=== PATIENT | female | born 1990 | race Caucasian/White ===

== ENCOUNTER 2024-12-04 16:19 | Inpatient (IN) | payer SELFPAY ==
--- OUTSIDE RECORDS SUMMARY | 2024-03-19 08:00 | XMS_ITS ---
Author Organization [facility] Address [address] [place] [address] Care Team Providers Care Finishing Wire Sawyer Name Role Phone Umm Boogie Primary Care Provider REASON FOR VISIT [place] Social History Sex Assigned At : Social History Observation Description Sex Assigned At Female Encounters Encounter Location Date Provider Diagnosis 18[facility] [address] [place] [address] 03/19/2024 Umm Boogie Plan Of Treatment No Information Progress Notes * Lorri REYNOSO MDOB:[birth year] (34 yo F)Acc No.[id number]:03/19/2024 Population Health Nurse Visi t Patient: Aleida Lorri baez Provider: Kirk Boogie MD :1990 A ge:33 Y S ex:Female Date:03/19/2024 Address:[address] [place] [address] [place], [place] [id number] Subjective: * Chief Complaints: * M edicaid [place] Billing Information: * Procedure Codes: Care Plan Details* * Electronic signature of Daisy Boogie MD on 12/04/2024 at 04:29 PM CDT Sign off status: Pending * Provider: Kirk Boogie MD Date: 1 Generated for Printi ng/Faxing/eTransmitting on: 0 12/04/2024 04:29 PM CDT
--- OUTSIDE RECORDS SUMMARY | 2024-03-19 08:00 | XMS_ITS ---
Author Organization [facility] Address [address] [place] [address] Care Team Providers Care Records Management Engineer Name Role Phone Umm Boogie Primary Care Provider REASON FOR VISIT DM f/uSEE NAVIGATORS Social History Sex Assigned At : Social History Observation Description Sex Assigned At Female Encounters Encounter Location Date Provider Diagnosis 18 [facility] [address] [place] [address] 03/19/2024 Umm Boogie Plan Of Treatment No Information Progress Notes * Lorri REYNOSO MDOB:[birth year] (34 yo F)Acc No.[id number]:03/19/2024 Progress Notes Patient: Aleida Lorri baez Provider: Kirk Boogie MD :1990 A ge:33 Y S ex:Female Date:03/19/2024 Address:[address] [place] [address] [place], [place] [id number] Subjective: * Chief Complaints: * D M f/uSEE NAVIGATORS Billing Information: * Procedure Codes: Care Plan Details* * Electronic signature of Daisy Boogie MD on 12/04/2024 at 04:29 PM CDT Sign off status: Pending * Provider: Kirk Boogie MD Date: 1 Generated for Printi ng/Faxing/eTransmitting on: 0 12/04/2024 04:29 PM CDT
--- OUTSIDE RECORDS SUMMARY | 2024-03-19 08:00 | XMS_ITS ---
Author Organization [facility] Address [address] [place] [address] Care Team Providers Care Bliss Press Operator Name Role Phone Umm Boogie Primary Care Provider REASON FOR VISIT DM check in- pt with PCP Social History Sex Assigned At : Social History Observation Description Sex Assigned At Female Encounters Encounter Location Date Provider Diagnosis 18 [facility] [address] [place] [address] 03/19/2024 Umm Boogie Plan Of Treatment No Information Progress Notes * Lorri REYNOSO MDOB:[birth year] (34 yo F)Acc No.[id number]:03/19/2024 [facility] Patient: Lorri Lezama Provider: Kirk Boogie MD :1990 A ge:33 Y S ex:Female Date:03/19/2024 Address:[address] [place] [address] [place], [place] [phone] Subjective: * Chief Complaints: * D M check in- pt with PCP Billing Information: * Procedure Codes: Care Plan Details* * Electronic signature of Daisy Boogie MD on 12/04/2024 at 04:29 PM CDT Sign off status: Pending * Provider: Kirk Boogie MD Date: 1 Generated for Printi ng/Faxing/eTransmitting on: 0 12/04/2024 04:29 PM CDT
[2024-12-04 16:20] VITALS: BP 150/100; PULSE 106; RESP 19; TEMP 36.7; O2SAT 98; BMI 37.5
--- OUTSIDE RECORDS SUMMARY | 2024-12-04 16:29 | XMS_ITS | Patient Health Record ---
Author Organization [facility] Address [address] [place] [address] Care Team Providers Care Galvanizer Zinc Name Role Phone Umm Boogie Primary Care Provider Allergies Allergen (clinical drug ingredient) Drug/Non Drug Allergy documented on EMR Reaction Allergy Type Onset Date Status aspirin / citric acid / sodium bicarbonate Juan Carlos Unknown Drug Allergy Active Reason For Referral No Information Medications Medication SIG (Take, Route, Frequency, Duration) Notes Start Date End Date Status Wellbutrin XL 150 MG Tablet Extended Release 24 Hour 1 tablet daily for 1 week then 2 tabs daily Orally in the morning; Duration: 30 days 11/25/2023 Active Social History Tobacco Use: Social History Observation Description Date Details (start date - stop date) Unknown Sex Assigned At : Social History Observation Description Sex Assigned At Female Social History Drugs/Alcohol: Social Info Question Answer Notes Drugs Have you used drugs other than those for medical reasons in the past 12 months? Yes Marijuana? Yes Methamphetamine? Yes Drug/Alcohol: Social Info Question Answer Notes AUDIT-C (Standard) Did you have a drink containing alcohol in the past year? No Points 0 Interpretation Negative Tobacco Use: Social Info Question Answer Notes Tobacco Control (Standard) Tobacco use: Uses tobacco in other forms Are you an ENDS user: Are you an other t obacco user? Yes Electronic Nicotine Delivery System Yes Problems Problem Type SNOMED Code ICD Code Onset Dates Problem Status W/U Status Risk Notes Problem Diabetes (E11.9) Active confirmed Problem Methamphetamine abuse (062764156) Methamphetamine abuse (F15.10) Active confirmed Problem Substance abuse (4995113231) Substance abuse (F19.10) Active confirmed Plan Of Treatment No Information Insurance Providers Payer Name Payer Address Payer Phone Subscriber Number Group Number Insured Name Patient Relationship to Insured Coverage Start Date Coverage End Date Ambetter [address] [place] [address] [phone] [id number] Lorri Holliday Self - patient is the insured [facility] [address] [place] [address] [phone] [id number] Lorri Holliday Self - patient is the insured Medical (General) History Medical History History ICD Code type II diabetes Methamphetamine abuse F15.10
--- NOTE | 2024-12-04 16:53 | W.ED.PSYCHS ---
Documented by User: Jessica Coffey NP 12/04/24 17:59 HPI - Psych General: Chief Complaint: Psychiatric Symptoms Stated Complaint: SI Time Seen by Provider: 12/04/24 16:22 History of Present Illness: 34-year-old female patient presents to the emergency department with complaints of suicidal ideation. Patient admits to doing meth about 25 minutes prior to arrival. Patient states she does have a plan I would like to lay across train tracks. Patient states she is just tired of living. Patient states she has tried to stop meth and is recently cut back used to do meth daily and now it is a few times a week. Patient denies any other complaints at this time. Related Data Previous Rx's ?Medication ?Instructions ?Recorded furosemide 20 mg tablet (Lasix) 20 mg PO .COMPLEX #9 tabs 11/23/24 potassium chloride 10 mEq 10 meq PO DAILY 6 days #6 caps 11/23/24 capsule,extended release Allergies Allergy/AdvReac Type Severity Reaction Status Date / Time No Known Allergies Allergy Verified 12/04/24 16:24 Review of Systems General: Reports: 10 or more systems reviewed and unremarkable except in HPI and below PFSH ED PFSH: Social History Smoking and tobacco/nicotine status: current every day tobacco/nicotine user Physical Exam Narrative: EXAM NARRATIVE: 34-year-old female patient presents to the emergency department with complaints of suicidal ideation. Patient admits to doing meth about 25 minutes prior to arrival. Patient states she does have a plan I would like to lay across train tracks. Patient states she is just tired of living. Patient states she has tried to stop meth and is recently cut back used to do meth daily and now it is a few times a week. Patient denies any other complaints at this time. Given patients SI she is deemed a threat to herself and will require psychiatric admission for evaluation and stabilization. Const: COMMON NORMALS: patient oriented x3 HENMT: COMMON NORMALS: normocephalic and atraumatic HEAD & SCALP: normocephalic and atraumatic Resp: COMMON NORMALS: normal respiratory effort, No retractions, No use of accessory muscles and clear to auscultation bilaterally AUSCULTATION: clear to auscultation bilaterally Cardio: COMMON NORMALS: regular rate and regular rhythm RATE: regular rate RHYTHM: regular rhythm Neuro: COMMON NORMALS: patient oriented x3, CN's II-XII intact bilaterally and moves all extremities Psych: COMMON NORMALS: cooperative; negative for normal affect, negative for denies homicidal ideation and negative for denies suicidal ideation Course Vital Signs: Vital signs: Vital Signs Temperature 97.8 F 12/05/24 06:00 Pulse Rate 99 12/05/24 06:00 Respiratory Rate 17 12/05/24 06:00 Blood Pressure 137/98 12/05/24 06:00 Pulse Oximetry 97 12/05/24 06:00 Oxygen Delivery Me thod Room Air 12/05/24 06:00 MDM - Psych Medical Decision Making 34-year-old female patient presents to the emergency department with complaints of suicidal ideation. Patient admits to doing meth about 25 minutes prior to arrival. Patient states she does have a plan I would like to lay across train tracks. Patient states she is just tired of living. Patient states she has tried to stop meth and is recently cut back used to do meth daily and now it is a few times a week. Patient denies any other complaints at this time. Lab Data 12/04/24 17:54 12/04/24 17:54 Laboratory Results WBC 8.45 10^3/uL (3.29-11.43) 12/04/24 17:54 RBC 5.55 10^6/uL (3.85-5.65) 12/04/24 17:54 Hgb 16.50 g/dL (11.27-16.99) 12/04/24 17:54 Hct 51.5 % (36-47) H 12/04/24 17:54 MCV 92.8 fl (85-98) 12/04/24 17:54 MCH 29.7 pg (27-33) 12/04/24 17:54 MCHC 32.0 g/dL (30-55) 12/04/24 17:54 RDW 15.9 % (12.1-15.1) H 12/04/24 17:54 Plt Count 264 10^3/cmm (157-399) 12/04/24 17:54 MPV 10.1 fL (7.4-10.4) 12/04/24 17:54 Neut % (Auto) 53.1 % 12/04/24 17:54 Lymph % (Auto) 33.6 % 12/04/24 17:54 [place] % (Auto) 11.0 % 12/04/24 17:54 Eos % (Auto) 1.2 % 12/04/24 17:54 Baso % (Auto) 0.9 % 12/04/24 17:54 Neut # (Auto) 4.48 10^3/uL (1.8-7.7) 12/04/24 17:54 Lymph # (Auto) 2.8 10^3/uL (0.8-4.8) 12/04/24 17:54 [place] # (Auto) 0.9 10^3/uL (0.2-0.9) 12/04/24 17:54 Eos # (Auto) 0.1 10^3/uL (0.0-0.8) 12/04/24 17:54 Baso # (Auto) 0.1 10^3/uL (0.0-0.1) 12/04/24 17:54 Nucleated RBC % (auto) 0 % 12/04/24 17:54 Nucleated RBCs # 0.0 /100WBC 12/04/24 17:54 Sodium 136 mmol/L (136-145) 12/04/24 17:54 Potassium 3.7 mmol/L (3.5-5.1) 12/04/24 17:54 Chloride 101 mmol/L (98-107) 12/04/24 17:54 Carbon Dioxide 22 mmol/L (22-29) 12/04/24 17:54 Anion Gap 16.7 (5-19) 12/04/24 17:54 BUN 13 mg/dL (6-20) 12/04/24 17:54 Creatinine 1.1 mg/dL (0.5-0.9) H 12/04/24 17:54 GFR Calculation 56.2 mL/min (90-130) L 12/04/24 17:54 Glucose 117 mg/dL (65-115) H 12/04/24 17:54 Calculated Osmolality 283 mOsm/kg (285-295) L 12/04/24 17:54 Calcium 8.9 mg/dL (8.5-10.5) 12/04/24 17:54 Total Bilirubin 1.4 mg/dL (0.15-1.2) H 12/04/24 17:54 AST 38 U/L (0-32) H 12/04/24 17:54 ALT 30 U/L (0-33) 12/04/24 17:54 Alkaline Phosphatase 128 U/L (35-105) H 12/04/24 17:54 Total Protein 6.6 g/dL (6.6-8.7) 12/04/24 17:54 Albumin 3.3 g/dL (3.5-5.2) L 12/04/24 17:54 Globulin 3.3 g/dL (1.3-4.6) 12/04/24 17:54 HCG, Qual Negative (Negative) 12/04/24 16:35 Urine Color Dark yellow (Yellow) A 12/04/24 16:35 Urine Appearance Cloudy (CLEAR) A 12/04/24 16:35 Urine pH 5.5 (5-7) 12/04/24 16:35 Ur Specific [place] 1.017 (1.005-1.030) 12/04/24 16:35 Urine Protein 3+ (Negative) A 12/04/24 16:35 Urine Glucose (UA) Negative (Normal) 12/04/24 16:35 Urine Ketones Negative (Negative) 12/04/24 16:35 Urine Blood 1+ (Negative) A 12/04/24 16:35 Urine Nitrate Negative (Negative) 12/04/24 16:35 Urine Bilirubin 1+ (Negative) H 12/04/24 16:35 Urine Urobilinogen 1.0 mg/dL (Negative) 12/04/24 16:35 Ur Leukocyte Esterase Negative (Negative) 12/04/24 16:35 Urine RBC 0-2 /hpf (0-2) 12/04/24 16:35 Urine WBC 0-5 /hpf (0-5) 12/04/24 16:35 Ur Squamous Epith Cells 11-20 /hpf (0-5) H 12/04/24 16:35 Amorphous Sediment Not Reportable 12/04/24 16:35 Urine Bacteria 1+ /hpf (NONE) H 12/04/24 16:35 Hyaline Casts 18.61 /lpf 12/04/24 16:35 Salicylates < 0.3 mg/dL (3-10) L 12/04/24 17:54 Urine Opiates Screen Negative ng/mL (Negative) 12/04/24 16:35 Acetaminophen < 5.0 ug/mL (10-30) L 12/04/24 17:54 Ur Barbiturates Screen Negative ng/mL (Negative) 12/04/24 16:35 Ur Phencyclidine Scrn Negative ng/mL (Negative) 12/04/24 16:35 Ur Amphetamines Screen Positive ng/mL (Negative) H 12/04/24 16:35 U Benzodiazepines Scrn Negative ng/mL (Negative) 12/04/24 16:35 Urine Cocaine Screen Negative ng/mL (Negative) 12/04/24 16:35 U Marijuana (THC) Screen Negative ng/mL (Negative) 12/04/24 16:35 Ethyl Alcohol < 10 mg/dL (0-10) 12/04/24 17:54 Influenza A (PCR) Negative (Negative) 12/04/24 17:15 Influenza Type B (PCR) Negative (Negative) 12/04/24 17:15 RSV (PCR) Negative (Negative) 12/04/24 17:15 SARS-CoV-2 (PCR) Negative (Negative) 12/04/24 17:15 No radiology studies performed this visit Discharge Plan Discharge Patient Disposition: Admitted As Inpatient Admit Provider: Nader Carbone Clinical Impression: Suicidal ideation, Methamphetamine abuse Condition: Stable Coding Level of Care Code ED Public Relations Supervisor for Chg Fwd Documented by User: Fred Rodriguez DO 12/05/24 09:10 HPI - Psych General: Chief Complaint: Psychiatric Symptoms Stated Complaint: SI Time Seen by Provider: 12/04/24 16:22 Related Data Previous Rx's ?Medication ?Instructions ?Recorded furosemide 20 mg tablet (Lasix) 20 mg PO .COMPLEX #9 tabs 11/23/24 potassium chloride 10 mEq 10 meq PO DAILY 6 days #6 caps 11/23/24 capsule,extended release Allergies Allergy/AdvReac Type Severity Reaction Status Date / Time No Known Allergies Allergy Verified 12/04/24 16:24 PFSH ED PFSH: Social History Smoking and tobacco/nicotine status: current every day tobacco/nicotine user Course Vital Signs: Vital signs: Vital Signs Temperature 97.8 F 12/05/24 06:00 Pulse Rate 99 12/05/24 06:00 Respiratory Rate 17 12/05/24 06:00 Blood Pressure 137/98 12/05/24 06:00 Pulse Oximetry 97 12/05/24 06:00 Oxygen Delivery Me thod Room Air 12/05/24 06:00 MDM - Psych Medical Decision Making 34-year-old female patient presents to the emergency department with complaints of suicidal ideation. Patient admits to doing meth about 25 minutes prior to arrival. Patient states she does have a plan I would like to lay across train tracks. Patient states she is just tired of living. Patient states she has tried to stop meth and is recently cut back used to do meth daily and now it is a few times a week. Patient denies any other complaints at this time. Chart reviewed and patient discussed with midlevel. Agree with assessment and plan. Lab Data 12/04/24 17:54 12/04/24 17:54 Laboratory Results WBC 8.45 10^3/uL (3.29-11.43) 12/04/24 17:54 RBC 5.55 10^6/uL (3.85-5.65) 12/04/24 17:54 Hgb 16.50 g/dL (11.27-16.99) 12/04/24 17:54 Hct 51.5 % (36-47) H 12/04/24 17:54 MCV 92.8 fl (85-98) 12/04/24 17:54 MCH 29.7 pg (27-33) 12/04/24 17:54 MCHC 32.0 g/dL (30-55) 12/04/24 17:54 RDW 15.9 % (12.1-15.1) H 12/04/24 17:54 Plt Count 264 10^3/cmm (157-399) 12/04/24 17:54 MPV 10.1 fL (7.4-10.4) 12/04/24 17:54 Neut % (Auto) 53.1 % 12/04/24 17:54 Lymph % (Auto) 33.6 % 12/04/24 17:54 [place] % (Auto) 11.0 % 12/04/24 17:54 Eos % (Auto) 1.2 % 12/04/24 17:54 Baso % (Auto) 0.9 % 12/04/24 17:54 Neut # (Auto) 4.48 10^3/uL (1.8-7.7) 12/04/24 17:54 Lymph # (Auto) 2.8 10^3/uL (0.8-4.8) 12/04/24 17:54 [place] # (Auto) 0.9 10^3/uL (0.2-0.9) 12/04/24 17:54 Eos # (Auto) 0.1 10^3/uL (0.0-0.8) 12/04/24 17:54 Baso # (Auto) 0.1 10^3/uL (0.0-0.1) 12/04/24 17:54 Nucleated RBC % (auto) 0 % 12/04/24 17:54 Nucleated RBCs # 0.0 /100WBC 12/04/24 17:54 Sodium 136 mmol/L (136-145) 12/04/24 17:54 Potassium 3.7 mmol/L (3.5-5.1) 12/04/24 17:54 Chloride 101 mmol/L (98-107) 12/04/24 17:54 Carbon Dioxide 22 mmol/L (22-29) 12/04/24 17:54 Anion Gap 16.7 (5-19) 12/04/24 17:54 BUN 13 mg/dL (6-20) 12/04/24 17:54 Creatinine 1.1 mg/dL (0.5-0.9) H 12/04/24 17:54 GFR Calculation 56.2 mL/min (90-130) L 12/04/24 17:54 Glucose 117 mg/dL (65-115) H 12/04/24 17:54 Calculated Osmolality 283 mOsm/kg (285-295) L 12/04/24 17:54 Calcium 8.9 mg/dL (8.5-10.5) 12/04/24 17:54 Total Bilirubin 1.4 mg/dL (0.15-1.2) H 12/04/24 17:54 AST 38 U/L (0-32) H 12/04/24 17:54 ALT 30 U/L (0-33) 12/04/24 17:54 Alkaline Phosphatase 128 U/L (35-105) H 12/04/24 17:54 Total Protein 6.6 g/dL (6.6-8.7) 12/04/24 17:54 Albumin 3.3 g/dL (3.5-5.2) L 12/04/24 17:54 Globulin 3.3 g/dL (1.3-4.6) 12/04/24 17:54 HCG, Qual Negative (Negative) 12/04/24 16:35 Urine Color Dark yellow (Yellow) A 12/04/24 16:35 Urine Appearance Cloudy (CLEAR) A 12/04/24 16:35 Urine pH 5.5 (5-7) 12/04/24 16:35 Ur Specific [place] 1.017 (1.005-1.030) 12/04/24 16:35 Urine Protein 3+ (Negative) A 12/04/24 16:35 Urine Glucose (UA) Negative (Normal) 12/04/24 16:35 Urine Ketones Negative (Negative) 12/04/24 16:35 Urine Blood 1+ (Negative) A 12/04/24 16:35 Urine Nitrate Negative (Negative) 12/04/24 16:35 Urine Bilirubin 1+ (Negative) H 12/04/24 16:35 Urine Urobilinogen 1.0 mg/dL (Negative) 12/04/24 16:35 Ur Leukocyte Esterase Negative (Negative) 12/04/24 16:35 Urine RBC 0-2 /hpf (0-2) 12/04/24 16:35 Urine WBC 0-5 /hpf (0-5) 12/04/24 16:35 Ur Squamous Epith Cells 11-20 /hpf (0-5) H 12/04/24 16:35 Amorphous Sediment Not Reportable 12/04/24 16:35 Urine Bacteria 1+ /hpf (NONE) H 12/04/24 16:35 Hyaline Casts 18.61 /lpf 12/04/24 16:35 Salicylates < 0.3 mg/dL (3-10) L 12/04/24 17:54 Urine Opiates Screen Negative ng/mL (Negative) 12/04/24 16:35 Acetaminophen < 5.0 ug/mL (10-30) L 12/04/24 17:54 Ur Barbiturates Screen Negative ng/mL (Negative) 12/04/24 16:35 Ur Phencyclidine Scrn Negative ng/mL (Negative) 12/04/24 16:35 Ur Amphetamines Screen Positive ng/mL (Negative) H 12/04/24 16:35 U Benzodiazepines Scrn Negative ng/mL (Negative) 12/04/24 16:35 Urine Cocaine Screen Negative ng/mL (Negative) 12/04/24 16:35 U Marijuana (THC) Screen Negative ng/mL (Negative) 12/04/24 16:35 Ethyl Alcohol < 10 mg/dL (0-10) 12/04/24 17:54 Influenza A (PCR) Negative (Negative) 12/04/24 17:15 Influenza Type B (PCR) Negative (Negative) 12/04/24 17:15 RSV (PCR) Negative (Negative) 12/04/24 17:15 SARS-CoV-2 (PCR) Negative (Negative) 12/04/24 17:15 Discharge Plan Discharge Patient Disposition: Admitted As Inpatient Admit Provider: Nader Carbone Clinical Impression: Suicidal ideation, Methamphetamine abuse Condition: Stable Coding Level of Care Code ED Public Relations Supervisor for Alejandra Guzman
[2024-12-04 17:06] LABS: HCG Qualitative Urine. Negative (Negative)
[2024-12-04 17:14] LABS: Glucose Urine UA Negative (Normal); Nitrate Urine Negative (Negative); Specific Gravity, Urine 1.017 (1.005-1.030)
[2024-12-04 17:17] LABS: Add Urine Microscopic? YES
[2024-12-04 17:19] LABS: UA Slide Review UA Slide Review Perf
[2024-12-04 17:21] LABS: PCP Screen Urine Negative (Negative)
--- NOTE | 2024-12-04 17:21 | PC.NURSE ---
AFTER PT BELONGINGS REMOVED, PT INFORMED THIS NURSE THAT PT HAD A MENSTRUAL CUP IN HER VAGINA DUE TO BEING ON MENTRUAL CYCLE. THIS NURSE ASKED PT TO REMOVE CUP. PT AGREED. MENSTRUAL CUP REMOVED AND PLACED IN DENTURE CUP CONTAINER AND PLACED IN BIOHAZARD BAG. BIOHAZARD BAG PLACED INTO PT BELONGINGS BAG BY LLOYD MOORE [employer].
[2024-12-04 18:02] LABS: Respiratory Syncytial Virus Ce NEGATIVE (Negative); SARS-CoV-2 PCR NEGATIVE (Negative)
[2024-12-04 18:06] LABS: Hematocrit 51.5 % (36-47); Hemoglobin 16.50 g/dL (11.27-16.99); Mean Corpuscular HGB Conc 32.0 g/dL (30-55); Mean Corpuscular Hemoglobin 29.7 pg (27-33); Mean Corpuscular Volume 92.8 fl (85-98); Nucleated Red Blood Cells % 0 %; Platelet Count 264 10^3/cmm (157-399); Red Blood Count 5.55 10^6/uL (3.85-5.65); White Blood Count 8.45 10^3/uL (3.29-11.43)
--- NOTE | 2024-12-04 18:21 | ECG_ITS ---
[facility] [employer] Test Date: 2024-12-04 Pat Name: Lorri Holliday Department: Room: 128 Gender: Female Scrap Yard Worker: : 1990 Requested By: Jessica Coffey Order Number: [id number] Reading MD: Measurements Intervals [place] Rate: 98 P: 70 NM: 170 QRS: 87 QRSD: 103 T: 42 QT: 388 QTc: 495 Interpretive Statements SINUS RHYTHM POSSIBLE RIGHT ATRIAL ENLARGEMENT [0.25mV P-WAVE] INCOMPLETE RIGHT BUNDLE BRANCH BLOCK [90+ ms QRS DURATION, TERMINAL R IN V1/V2, 40+ ms S IN I/aVL/V4/V5/V6] MODERATE T-WAVE ABNORMALITY, CONSIDER ANTERIOR ISCHEMIA [-0.1+ mV T-WAVE IN V3/V4] No previous ECG available for comparison [email or web address]
[2024-12-04 18:23] LABS: Acetaminophen < 5.0 ug/mL (10-30); Alanine Aminotransferase 30 U/L (0-33); Albumin Level 3.3 g/dL (3.5-5.2); Alcohol Level < 10 mg/dL (0-10); Alkaline Phosphatase 128 U/L (35-105); Anion Gap 16.7 (5-19); Aspartate Amino Transferase 38 U/L (0-32); Blood Urea Nitrogen 13 mg/dL (6-20); Calcium 8.9 mg/dL (8.5-10.5); Carbon Dioxide 22 mmol/L (22-29); Chloride 101 mmol/L (98-107); Creatinine Clr Calc Pharmacy 86.8985; Globulin 3.3 g/dL (1.3-4.6); Glucose 117 mg/dL (65-115); Osmolality Calculated 283 mOsm/kg (285-295); Potassium 3.7 mmol/L (3.5-5.1); Salicylate < 0.3 mg/dL (3-10); Sodium 136 mmol/L (136-145); Total Protein 6.6 g/dL (6.6-8.7)
[2024-12-04 19:28] VITALS: BP 141/99; PULSE 96; RESP 20; TEMP 36.3; O2SAT 100
[2024-12-04 22:00] VITALS: BP 141/99; PULSE 96; RESP 20; TEMP 36.3; O2SAT 100
--- NOTE | 2024-12-04 23:27 | PC.ADMIT ---
210 [facility] Admission Note: The patient,Lorri Holliday,34 y/o, was given written information regarding hospital policies, unit procedures and contact persons. 34 y/o female patient presented to this hospital after verbalizing SI with plan to step in front of train. Patient with sad and anxious affect. She appears unkempt. She reports always having mental health issues , a past history of SA by hanging, and daily methamphetamine use. Patient reports admission to [facility] in 2023.She has a past medical history for diabetes, CHF, and cirrhosis. She has no provider and is out of her medications. She is currently unemployed and homeless. Patient reports her mother had a significant psychiatric history with previous hospitalizations in psychiatric facility with diagnosis of MDD, schizophrenia and bipolar disorder. Her mother recently. She has two daughters who she states are not supportive of her and a boyfriend who is verbally aggressive with her. She endorses using methamphetamines daily and vape use. Patient states she is very passionate and yells and hits wall when she is upset. She has 2+ edema to her ble and cellulitis to rle. Last Vital Signs Temp 97.4 F L 12/04/24 22:00 Pulse 96 12/04/24 22:00 Resp 20 H 12/04/24 22:00 BP 141/99 12/04/24 22:00 Pulse Ox 100 12/04/24 22:00 O2 Del Method Room Air 12/04/24 22:00 Patient's smoking status: current every day smoker. Vital Signs - 8 hr 12/04/24 16:20 12/04/24 19:28 12/04/24 19:44 Temperature 98.0 F 97.4 F L Pulse Rate 106 H 96 Respiratory Rate 19 H 20 H Blood Pressure 150/100 141/99 Pulse Oximetry 98 100 Oxygen Delivery Method Room Air Room Air Room Air 12/04/24 22:00 Temperature 97.4 F L Pulse Rate 96 Respiratory Rate 20 H Blood Pressure 141/99 Pulse Oximetry 100 Oxygen Delivery Method Room Air
[2024-12-05 06:00] VITALS: BP 137/98; PULSE 99; RESP 17; TEMP 36.6; O2SAT 97
--- NOTE | 2024-12-05 10:21 | PC.OT ---
OT EVALUATION ATTEMPTED TWICE IN A.M. PATIENT SLEEPING SOUNDLY AND DOES NOT AWAKEN
[2024-12-05 14:00] VITALS: BP 149/110; PULSE 80; RESP 16; TEMP 36.9; O2SAT 97
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
--- NOTE | 2024-12-05 17:33 | PC.NURSE ---
Pt just refused blood draw, pt stated that she is just way too sensitive to it all right now .
--- NOTE | 2024-12-05 17:35 | P.CONIM_ITS ---
Providers/Reason For Consult 2 Consulting Physician/Specialty*: Hospitalist Reason for Consult*: Peripheral edema Requesting Physician: Nader Carbone MD Attending Physician: Nader Carbone MD History of Present Illness History of Present Illness Lorri Holliday is a 34 year old female with type 2 diabetes mellitus, CHF, hepatitis C, liver cirrhosis, and amphetamine abuse, bipolar disorder, PTSD, and depression admitted to psych for suicidal ideation. Hospitalist was consulted for evaluation and treatment of peripheral edema. She reported a history of CHF and liver cirrhosis. She was diagnosed with this in July 2024 at [facility]. She had not been taking her medications. She denies any fever, chills, chest pain, dyspnea, orthopnea, PND, palpitations, or syncope. She has bilateral leg edema. She denies any abdominal distention, jaundice, scleral icterus, or confusion. She was restarted on Lasix 20 mg daily yesterday. She had some erythema of her legs concerning for cellulitis. Review of Systems 2 General: Reports: 10 or more systems reviewed and unremarkable except in HPI and below Medications/Allergies Home Medications ?Medication ?Instructions ?Recorded ?Confirmed ?Last Taken ?Type furosemide 20 mg tablet (Lasix) 20 mg PO .COMPLEX #9 t abs 11/23/24 12/04/24 12/04/24 Rx potassium chloride 10 mEq 10 meq PO DAILY 6 days #6 ca ps 11/23/24 11/23/24 Unknown Rx capsule,extended release Allergies Allergy/AdvReac Type Severity Reaction Status Date / Time No Known Allergies Allergy Verified 12/04/24 16:24 Current Medications Generic Name Dose Route Start Last Admin Trade Name Freq PRN Reason Stop Dose Admin Furosemide 40 mg 12/05/24 17:15 12/05/24 17:31 Furosemide 40 Mg Tablet PO 40 mg BIDAC GUILHERME Administration Hydroxyzine Pamoate 50 mg 12/04/24 19:28 12/04/24 20:59 Hydroxyzine 25 Mg Capsule PO 50 mg Q6H PRN Administration ANXIETY Nicotine Polacrilex 2 mg 12/04/24 19:28 12/05/24 13:18 Nicotine 2 Mg Gum BUCCAL 2 mg Q2H PRN Administration NICOTINE WITHDRAWAL Nicotine Polacrilex 4 mg 12/04/24 19:39 12/04/24 20:59 Nicotine 4 Mg Lozenge MUCOUS MEM 4 mg Q2H PRN Administration NICOTINE CRAVINGS Sertraline HCl 25 mg 12/05/24 14:30 12/05/24 14:44 Sertraline 50 Mg Tablet PO 25 mg DAILY GUILHERME Administration PFSH Acute 2 PFSH: Medical History (Updated 12/05/24 @ 17:44 by Mariam Maynard MD) Type 2 diabetes mellitus Hepatitis C Liver cirrhosis Chronic CHF Social History Smoking and tobacco/nicotine status: current every day tobacco/nicotine user Female Reproductive History: Date of last menstrual period: 12/04/24 Vitals/I&O/Wt Last Vital Signs Temp 98.5 F 12/05/24 14:00 Pulse 80 12/05/24 14:00 Resp 16 12/05/24 14:00 BP 149/110 12/05/24 14:00 Pulse Ox 97 12/05/24 14:00 O2 Del Method Room Air 12/05/24 14:00 Weight last 48 hrs Weight 105.687 kg Physical Exam 2 Narrative: GEN: Alert, no acute distress HEENT: Normocephalic, atraumatic, PERRLA, no scleral icterus Neck: Supple Respiratory: Normal respiratory effort, clear to auscultation bilaterally Cardio: Regular rate and rhythm, S1, S2, no murmurs rub or gallop Abdomen: Soft, nontender, nondistended, normoactive bowel sounds Extremity: Warm, 2+ pitting edema bilateral legs Neuro: Awake, alert, oriented x 3, no focal deficits Skin: No jaundice, mild blanchable erythema both legs Data 12/04/24 17:54 12/04/24 17:54 A&P Assessment and plan (1) Chronic CHF: Saturating well on room air, no respiratory symptoms at this time Bilateral leg edema Will increase her Lasix to 40 mg twice daily Monitor renal function Monitor I's and O's and daily weights Will obtain echo report from [facility] (2) Liver cirrhosis: She has a history of hepatitis C, will check viral load Will request for records of abdominal imaging from [facility] No evidence of ascites or jaundice (3) Methamphetamine abuse: She has been using methamphetamine since she was 9 Substance abuse treatment per psychiatry (4) Type 2 diabetes mellitus: Sliding scale insulin (5) Suicidal ideation: Management deferred to psychiatry (6) PTSD (post-traumatic stress disorder): Defer to psychiatry (7) Depression, unspecified: Deferred to psychiatry (8) H/O borderline personality disorder: Defer to psychiatry Plan Erythema both legs are mild and do not appear to be consistent with cellulitis. Likely from her peripheral edema. No need for antibiotics for this. PDMP PDMP Reviewed: Not Reviewed Consult Attestations 2 Time Spent in Patient Care: Time spent in patient care close 40 minutes. This includes [id number] evaluation, chart review, discussion of plan of care with patient and nursing staff. Coding Level of Care Code 78592 Diagnoses Chronic CHF I50.9 Liver cirrhosis K74.60 Methamphetamine abuse F15.10 Type 2 diabetes mellitus E11.9 Suicidal ideation R45.851 PTSD (post-traumatic stress disorder) F43.10 Depression, unspecified F32.A H/O borderline personality disorder Z86.59
[2024-12-05 19:17] LABS: Glucose Urine UA Negative (Normal); Nitrate Urine Negative (Negative); Specific Gravity, Urine 1.011 (1.005-1.030)
[2024-12-05 22:00] VITALS: BP 151/110; PULSE 100; RESP 19; TEMP 36.3; O2SAT 97
[2024-12-06 06:00] VITALS: BP 139/95; PULSE 100; RESP 19; TEMP 36.4; O2SAT 91; BMI 35.6
[2024-12-06 08:25] LABS: Hematocrit 51.5 % (36-47); Hemoglobin 17.10 g/dL (11.27-16.99); Mean Corpuscular HGB Conc 33.2 g/dL (30-55); Mean Corpuscular Hemoglobin 29.6 pg (27-33); Mean Corpuscular Volume 89.1 fl (85-98); Nucleated Red Blood Cells % 0 %; Platelet Count 285 10^3/cmm (157-399); Red Blood Count 5.78 10^6/uL (3.85-5.65); White Blood Count 10.39 10^3/uL (3.29-11.43)
[2024-12-06 08:44] LABS: Alanine Aminotransferase 27 U/L (0-33); Albumin Level 3.0 g/dL (3.5-5.2); Alkaline Phosphatase 130 U/L (35-105); Anion Gap 17.1 (5-19); Aspartate Amino Transferase 35 U/L (0-32); Blood Urea Nitrogen 13 mg/dL (6-20); Calcium 9.0 mg/dL (8.5-10.5); Carbon Dioxide 23 mmol/L (22-29); Chloride 101 mmol/L (98-107); Globulin 3.7 g/dL (1.3-4.6); Glucose 129 mg/dL (65-115); Osmolality Calculated 286 mOsm/kg (285-295); Potassium 4.1 mmol/L (3.5-5.1); Sodium 137 mmol/L (136-145); Total Protein 6.7 g/dL (6.6-8.7)
[2024-12-06 08:47] LABS: Creatinine Clr Calc Pharmacy 92.9153
[2024-12-06 08:51] LABS: NT Pro B Type Natriuretic Pept 2472 pg/mL (0-125); Procalcitonin 0.05 ng/mL (0-0.5)
--- NOTE | 2024-12-06 12:39 | PM.PN ---
Subjective Subjective: She has been peeing a lot. Her peripheral edema is improved. She continues to deny dyspnea or other symptoms. [facility] yesterday Medications: Reviewed: Yes Vitals/I&O/Wt Last Vital Signs Temp 97.6 F 12/06/24 06:00 Pulse 100 12/06/24 06:00 Resp 19 H 12/06/24 06:00 BP 139/95 12/06/24 06:00 Pulse Ox 91 12/06/24 06:00 O2 Del Method Room Air 12/06/24 06:00 Weight last 48 hrs Weight 100.244 kg Weight 105.687 kg Physical Exam Narrative: GEN: Alert, no acute distress HEENT: Normocephalic, atraumatic, PERRLA, no scleral icterus Neck: Supple Respiratory: Normal respiratory effort, clear to auscultation bilaterally Cardio: Regular rate and rhythm, S1, S2, no murmurs rub or gallop Abdomen: Soft, nontender, nondistended, normoactive bowel sounds Extremity: Warm, 1+ pitting edema bilateral legs Neuro: Awake, alert, oriented x 3, no focal deficits Skin: No jaundice, mild blanchable erythema both legs Data 12/06/24 08:02 12/06/24 08:02 A&P Assessment and plan (1) Chronic CHF: Saturating well on room air, no respiratory symptoms at this time BNP elevated to 2472 Peripheral edema is improving Continue Lasix 40 mg twice daily for a week then switch her to Lasix 40 mg daily thereafter Creatinine stable, continue to monitor Monitor I's and O's and daily weights Will obtain echo report [facility] (2) Liver cirrhosis: She has a history of hepatitis C, viral load is pending Requesting records of abdominal imaging from [facility] No evidence of ascites or jaundice (3) Methamphetamine abuse: She has been using methamphetamine since she was 9 Substance abuse treatment per psychiatry (4) Type 2 diabetes mellitus: Sliding scale insulin (5) Suicidal ideation: Management deferred to psychiatry (6) PTSD (post-traumatic stress disorder): Defer to psychiatry (7) Depression, unspecified: Deferred to psychiatry (8) H/O borderline personality disorder: Defer to psychiatry Plan Edema is improving with oral Lasix. Continue twice daily dosing for total of 4 weeks then 40 mg daily thereafter. Records requested [facility]. PDMP PDMP Reviewed: Not Reviewed Attestations Medical Necessity Statement*: Continued hospitalization per psychiatry. Coding Level of Care Code 47749 Diagnoses Chronic CHF I50.9 Liver cirrhosis K74.60 Methamphetamine abuse F15.10 Type 2 diabetes mellitus E11.9 Suicidal ideation R45.851 PTSD (post-traumatic stress disorder) F43.10 Depression, unspecified F32.A H/O borderline personality disorder Z86.59
--- NOTE | 2024-12-06 13:05 | P.NPUPN_ITS ---
Subjective NPU 2 Subjective: 34-year-old female admitted with suicida l ideation with a history of methamphetamine abuse, and depression. Patient had reported feeling tired and withdrawing off of her methamphetamine. She reported having nightmares regarding her past trauma. She reported continuing to feel suicidal. She had endorsed that she was homeless and reported a lack of supports. She did not report any side effects from her medication regimen. Mental Status Exam 2 MSE Comments: She is a casually dressed overweight white female with poor hygiene who appeared older than her stated age. She appeared fatigued, with prominent psychomotor slowing today. There was no evidence of any abnormal involuntary motor movements, tics, or tremors appreciated. Her speech was decreased in productivity, decreased in volume. Her mood was described as depressed. Her affect was mood congruent and flat. Her thought process was linear, logical, and goal-directed. Her thought content showed no evidence of suicidal ideation with a plan to lay down on a railroad track. She denied any homicidal ideation. She did not appear to be responding to internal stimuli. She denied any auditory or visual hallucinations. There was no evidence of delusional thinking. There were no ideas of reference. She was alert and oriented to person, place, time, and situation. Her attention span was fair. Her insight appeared poor. Her judgment was poor. Her impulse control appeared limited. She had reported a sense of hopelessness and reported being tired of living. Vitals/I&O/Wt Last Vital Signs Temp 97.6 F 12/06/24 06:00 Pulse 100 12/06/24 06:00 Resp 19 H 12/06/24 06:00 BP 139/95 12/06/24 06:00 Pulse Ox 91 12/06/24 06:00 O2 Del Method Room Air 12/06/24 06:00 Weight last 48 hrs Weight 100.244 kg Weight 105.687 kg Data NPU 12/06/24 08:02 12/06/24 08:02 A&P Assessment and plan (1) Depression, unspecified: (2) PTSD (post-traumatic stress disorder): (3) Suicidal ideation: (4) Methamphetamine abuse: (5) H/O borderline personality disorder: Plan 34-year-old female with chronic methamphetamine abuse admitted with depression and suicidal ideation with continued symptoms suggestive of PTSD and borderline personality disorder along with depression. #1.? Engage patient in individual milieu and group therapy. #2?? Recommend sober living treatment at the highest level of care to which the patient is willing to commit. Patient may be candidate for inpatient substance abuse treatment #3???Restart outpatient medications. Medical consult appreciated. ? #4?? TO-15 minute checks? #5?? Will attempt to gather collateral information, increase zoloft to 50mg daily and seroquel 50mg at night. PDMP PDMP Reviewed: Not Reviewed Involuntary Hold Information 2 Hold Status: Legal Status: 96 Hour Hold Date/Time Hold Expires: 12/11/2024 0001 Attestations NPU 2 Medical Necessity Statement*: Inpatient hospitalization is medically necessary and deemed to ?be ?the clinically appropriate intervention ?at this time.? We will monitor/initiate medications and make changes as indicated.? The patient?s likely length of stay 5-7 days. Coding Level of Care Code Acute Code for [facility] Fwd Diagnoses Depression, unspecified F32.A PTSD (post-traumatic stress disorder) F43.10 Suicidal ideation R45.851 Methamphetamine abuse F15.10 H/O borderline personality disorder Z86.59
[2024-12-06 14:00] VITALS: BP 141/83; PULSE 114; RESP 16; TEMP 36.6; O2SAT 96
[2024-12-06 20:47] VITALS: BP 145/94; PULSE 116; RESP 19; TEMP 36.6; O2SAT 95
[2024-12-07 06:00] VITALS: BP 118/79; PULSE 98; RESP 17; TEMP 36.6; O2SAT 93
[2024-12-07 14:00] VITALS: BP 144/106; PULSE 91; RESP 19; TEMP 36.6; O2SAT 95
[2024-12-07 14:19] LABS: Hematocrit 54.0 % (36-47); Hemoglobin 17.40 g/dL (11.27-16.99); Mean Corpuscular HGB Conc 32.2 g/dL (30-55); Mean Corpuscular Hemoglobin 29.6 pg (27-33); Mean Corpuscular Volume 92.0 fl (85-98); Nucleated Red Blood Cells % 0 %; Platelet Count 278 10^3/cmm (157-399); Red Blood Count 5.87 10^6/uL (3.85-5.65); White Blood Count 8.82 10^3/uL (3.29-11.43)
[2024-12-07 14:32] LABS: Albumin Level 2.9 g/dL (3.5-5.2); Anion Gap 14.0 (5-19); Blood Urea Nitrogen 13 mg/dL (6-20); Calcium 8.7 mg/dL (8.5-10.5); Carbon Dioxide 25 mmol/L (22-29); Chloride 101 mmol/L (98-107); Creatinine Clr Calc Pharmacy 92.9153; Glucose 170 mg/dL (65-115); Magnesium 1.9 mg/dL (1.7-2.3); Potassium 4.0 mmol/L (3.5-5.1); Sodium 136 mmol/L (136-145)
--- NOTE | 2024-12-07 17:44 | P.NPUPN_ITS ---
Subjective NPU 2 Subjective: 34-year-old female admitted with suicida l ideation with a history of methamphetamine abuse, and depression. Patient continued to isolate herself and stayed in her room throughout much of the day. She had reported feeling tired. She endorsed feeling depressed. She had reported having significant lack of energy likely contributed by her withdrawal from methamphetamine. She had endorsed continued feelings of hopelessness and worthlessness. She had endorsed stress of being homeless and reported continuing suicidal ideation. She did not report any side effects from her current medication regimen. Mental Status Exam 2 MSE Comments: She is a casually dressed overweight white female with poor hygiene who appeared older than her stated age. She appeared fatigued, with prominent psychomotor slowing today. There was no evidence of any abnormal involuntary motor movements, tics, or tremors appreciated. Her speech was decreased in productivity, decreased in volume. Her mood was depressed. Her affect was mood congruent and flat. Her thought process was linear, logical, and goal- directed. Her thought content showed no evidence of suicidal ideation with a plan to lay down on a railroad track. She denied any homicidal ideation. She did not appear to be responding to internal stimuli. She denied any auditory or visual hallucinations. There was no evidence of delusional thinking. There were no ideas of reference. She was alert and oriented to person, place, time, and situation. Her attention span was fair. Her insight appeared poor. Her judgment was poor. Her impulse control appeared limited. She had reported a sense of hopelessness and reported being tired of living. Vitals/I&O/Wt Last Vital Signs Temp 97.9 F 12/07/24 14:00 Pulse 91 12/07/24 14:00 Resp 19 H 12/07/24 14:00 BP 144/106 12/07/24 14:00 Pulse Ox 95 12/07/24 14:00 O2 Del Method Room Air 12/07/24 06:00 Weight last 48 hrs Weight 100.244 kg Data NPU 12/07/24 14:08 12/07/24 14:08 Micro: Microbiology 12/05/24 18:45 Urine Culture - Final Urine,Clean Catch Microbiology 12/05/24 18:45 Urine,Clean Catch Urine Culture - Final A&P Assessment and plan (1) Depression, unspecified: (2) PTSD (post-traumatic stress disorder): (3) Suicidal ideation: (4) Methamphetamine abuse: (5) H/O borderline personality disorder: Plan 34-year-old female with chronic methamphetamine abuse admitted with depression and suicidal ideation with continued symptoms suggestive of PTSD and borderline personality disorder along with depression. #1.? Engage patient in individual milieu and group therapy. #2?? Recommend sober living treatment at the highest level of care to which the patient is willing to commit. Patient may be candidate for inpatient substance abuse treatment #3???Restart outpatient medications. Medical consult appreciated. ? #4?? TO-15 minute checks? #5?? Will attempt to gather collateral information, continue zoloft at 50mg daily and increase seroquel 100mg at night. PDMP PDMP Reviewed: Not Reviewed Involuntary Hold Information 2 Hold Status: Legal Status: 96 Hour Hold Date/Time Hold Expires: 12/11/2024 00:01 Attestations NPU 2 Medical Necessity Statement*: Inpatient hospitalization is medically necessary and deemed to ?be ?the clinically appropriate intervention ?at this time.? We will monitor/initiate medications and make changes as indicated.? The patient?s likely length of stay 5-7 days. Coding Level of Care Code Acute Code for g Fwd Diagnoses Depression, unspecified F32.A PTSD (post-traumatic stress disorder) F43.10 Suicidal ideation R45.851 Methamphetamine abuse F15.10 H/O borderline personality disorder Z86.59
[2024-12-07 20:22] VITALS: BP 146/99; PULSE 94; RESP 18; TEMP 36.7; O2SAT 96
--- NOTE | 2024-12-07 20:37 | P.PN_ITS ---
Subjective 2 Subjective: 34-year-old female with a hist ory of alcohol abuse and methamphetamine abuse admitted for suicidal ideation. Patient also has a history of opiate abuse she describes the methamphetamines as daily use and alcohol use is fifth the day in the past she has history of chronic liver disease type 2 diabetes CHF and hepatitis C. Patient states she was diagnosed with CHF in July while in [place]. Patient states her family members have heart failure and thinks that it is genetic. Patient tells me she has never been told that her heart failure could be related to alcohol or methamphetamine use Patient reports that she went from 145 pounds to 260 and that it was all water weight Patient admits to lots of conflict in her life Vitals/I&O/Wt Last Vital Signs Temp 98.1 F 12/07/24 20:22 Pulse 94 12/07/24 20:22 Resp 18 12/07/24 20:22 BP 146/99 12/07/24 20:22 Pulse Ox 96 12/07/24 20:22 O2 Del Method Room Air 12/07/24 20:22 Weight last 48 hrs Weight 100.244 kg Physical Exam 2 Narrative: General well-developed well-nourished female in no acute cardiopulmonary distress she is scratching at her scalp and forehead. She tells me this is a nervous behavior CV regular rate and rhythm Lungs clear to auscultation bilaterally Calves trace to 1 edema bilaterally. Left pretibial mildly tender Mood mildly emotional. Patient reports she is afraid to regain water weight and have the painful swelling in her legs. Mentation patient was initially alert attentive then became visibly angry when the fitness floor attendant went by on the noisy machine patient was irritable close the door for above exam briefly for 2 minutes. Data 12/07/24 14:08 12/07/24 14:08 Micro: Microbiology 12/05/24 18:45 Urine Culture - Final Urine,Clean Catch A&P Assessment and plan (1) Chronic CHF: Patient should have chest x-ray PA and LAT performed to document cardiomegaly repeat mini panel in the morning magnesium and phosphorus. Consider decreasing her dosage. Obtain echo and cardiopulmonary reports from [place] (2) Type 2 diabetes mellitus: Will add A1c to lab (3) Liver cirrhosis: LFTs only minimal elevation of AST to 35 (4) H/O borderline personality disorder: Initially did not seem that the patient had borderline personality disorder but then she demonstrated emotional lability and anger and lack of awareness that was suspicious (5) Methamphetamine abuse: Counseled the patient that she should stop methamphetamines and alcohol due to heart failure (6) PTSD (post-traumatic stress disorder): Managed by psychiatry. PDMP PDMP Reviewed: Not Reviewed Attestations 2 Medical Necessity Statement*: Anticipate the patient will have additional days in the hospital for her psychiatric care. Will return in 1 to 2 days to adjust her diuretics further Coding Level of Care Code 15980 Diagnoses Chronic CHF I50.9 Type 2 diabetes mellitus E11.9 Liver cirrhosis K74.60 H/O borderline personality disorder Z86.59 Methamphetamine abuse F15.10 PTSD (post-traumatic stress disorder) F43.10 Time Spent (min) 35
--- NOTE | 2024-12-07 20:47 | XRR_ITS ---
PROCEDURE INFORMATION: Exam: XR Chest Exam date and time: 12/07/2024 10:38 PM Age: 34 years old Clinical indication: Other: Congestive heart failure; Additional info: Congestive heart failure and methamphetamine and alcohol abu, history of methamphetamine and alcohol abuse TECHNIQUE: Imaging protocol: Radiologic exam of the chest. Views: 2 views. COMPARISON: No relevant prior studies available. FINDINGS: Limitations: Kyphotic positioning on frontal view. Lungs: No pulmonary consolidation. Pleural spaces: No pleural effusion or pneumothorax. Heart/Mediastinum: Heart size is poorly assessed though the cardiomediastinal silhouette appears enlarged. Bones/joints: No acute osseous abnormalities are seen. XR/XR chest 2V* [id number] IMPRESSION: 1. No acute cardiopulmonary disease. 2. Suggested enlargement of the cardiomediastinal silhouette.
[2024-12-07 21:22] VITALS: BP 146/99; PULSE 94; RESP 18; TEMP 36.7; O2SAT 96
[2024-12-08 06:00] VITALS: BP 133/92; PULSE 87; RESP 17; TEMP 36.6; O2SAT 93
[2024-12-08 11:18] LABS: Estmated Average Glucose 174; Hemoglobin A1C 7.7 % (4.0-6.0)
[2024-12-08 11:21] LABS: Anion Gap 15.1 (5-19); Blood Urea Nitrogen 16 mg/dL (6-20); Calcium 9.1 mg/dL (8.5-10.5); Carbon Dioxide 25 mmol/L (22-29); Chloride 100 mmol/L (98-107); Creatinine Clr Calc Pharmacy 103.2392; Glucose 149 mg/dL (65-115); Magnesium 2.0 mg/dL (1.7-2.3); Osmolality Calculated 286 mOsm/kg (285-295); Potassium 4.1 mmol/L (3.5-5.1); Sodium 136 mmol/L (136-145)
--- NOTE | 2024-12-08 12:54 | P.NPUPN_ITS ---
Subjective NPU 2 Subjective: 34-year-old female admitted with suicida l ideation with a history of methamphetamine abuse, and depression. The patient had continued to spend much of the day in her room. She reported that she would like to go to a group home but stated that she could not go anywhere without her dog. She continues to report feeling grouchy . She states that she is withdrawing off of her methamphetamine. She denied any hallucinations at this time. She reported that she felt unsafe with going on the streets. She had expressed some interest in inpatient substance abuse treatment but again reiterated that she could not be without her dog. The patient had continued to endorse low motivation and reported that she continued to feel like killing herself. Mental Status Exam 2 MSE Comments: She is a casually dressed overweight white female with poor hygiene who appeared older than her stated age. She was lying in bed with head underneath covers. She appeared fatigued, with prominent psychomotor retardation appreciated. There was no evidence of any abnormal involuntary motor movements, tics, or tremors appreciated. Her speech was decreased in productivity, decreased in volume. Her mood was described depressed. Her affect was mood congruent and flat. Her thought process was linear, logical, and goal-directed. Her thought content showed no evidence of suicidal ideation with no active plan at this time reported. She denied any homicidal ideation. She did not appear to be responding to internal stimuli. She denied any auditory or visual hallucinations. There was no evidence of delusional thinking. There were no ideas of reference. She was alert and oriented to person, place, time, and situation. Her attention span was fair. Her insight appeared poor. Her judgment was poor. Her impulse control appeared limited. She had reported a sense of hopelessness and reported being tired of living. Vitals/I&O/Wt Last Vital Signs Temp 97.8 F 12/08/24 06:00 Pulse 87 12/08/24 06:00 Resp 17 12/08/24 06:00 BP 133/92 12/08/24 06:00 Pulse Ox 93 12/08/24 06:00 O2 Del Method Room Air 12/08/24 06:00 Data NPU 12/07/24 14:08 12/08/24 10:41 Micro: Microbiology 12/05/24 18:45 Urine Culture - Final Urine,Clean Catch Microbiology 12/05/24 18:45 Urine,Clean Catch Urine Culture - Final A&P Assessment and plan 1. Depression, unspecified: 2. PTSD (post-traumatic stress disorder): 3. Suicidal ideation: 4. Methamphetamine abuse: 5. H/O borderline personality disorder: Plan: 34-year-old female with chronic methamphetamine abuse admitted with depression and suicidal ideation with continued symptoms suggestive of PTSD and borderline personality disorder along with depression. #1.? Engage patient in individual milieu and group therapy. #2?? Recommend sober living treatment at the highest level of care to which the patient is willing to commit. Patient may be candidate for inpatient substance abuse treatment #3???Restart outpatient medications. Medical consult appreciated. ? #4?? TO-15 minute checks? #5?? Will attempt to gather collateral information, continue zoloft at 50mg daily and continue seroquel 100mg at night. PDMP PDMP Reviewed: Not Reviewed Involuntary Hold Information 2 Hold Status: Legal Status: 96 Hour Hold Date/Time Hold Expires: 12/11/2024 00:01 Attestations NPU 2 Medical Necessity Statement*: Inpatient hospitalization is medically necessary and deemed to ?be ?the clinically appropriate intervention ?at this time.? We will monitor/initiate medications and make changes as indicated.? The patient?s likely length of stay 5-7 days. Coding Level of Care Code Acute Code for g Fwd Diagnoses Depression, unspecified F32.A PTSD (post-traumatic stress disorder) F43.10 Suicidal ideation R45.851 Methamphetamine abuse F15.10 H/O borderline personality disorder Z86.59
[2024-12-08 14:00] VITALS: BP 131/98; PULSE 88; RESP 16; TEMP 36.4; O2SAT 95
[2024-12-08 14:09] LABS: HEP C RNA Viral Load Quant 4.87 Log IU/mL (NOT DETECTED); HEP C RNA Viral Load Quant 74200 IU/mL (NOT DETECTED)
--- NOTE | 2024-12-08 17:20 | PM.PN ---
Subjective Subjective: 34-year-old female admitted with suicidal ideation with a history of methamphetamine abuse, and depression. The patient had continued to spend much of the day in her room. Patient lying in bed similar to yesterday but today she sat up and was interactive quickly upon my arrival. I discussed with her that x-ray showed cardiomegaly. She was interested knowing how big that was so I mustapha an illustration and that it is mild to moderately enlarged and only also her labs look good and so she is on an appropriate dose of diuretics. I discussed adding spironolactone Patient reports strong family history of coronary artery disease including her dad and grandparents Medications: Reviewed: Yes Vitals/I&O/Wt Last Vital Signs Temp 97.5 F L 12/08/24 14:00 Pulse 88 12/08/24 14:00 Resp 16 12/08/24 14:00 BP 131/98 12/08/24 14:00 Pulse Ox 95 12/08/24 14:00 O2 Del Method Room Air 12/08/24 14:00 Physical Exam Narrative: General well-developed well-nourished female in no acute cardiopulmonary distress she is scratching at her scalp and forehead. She tells me this is a nervous behavior CV regular rate and rhythm Lungs clear to auscultation bilaterally Mood and affect appropriate today no mood swings or anger Data 12/07/24 14:08 12/08/24 10:41 A&P Assessment and plan 1. Chronic CHF: Labs look good chest x-ray shows modest cardiomegaly and a poor inspiratory film obtain echo and cardiopulmonary reports from [place] 2. Type 2 diabetes mellitus: Will add A1c to lab. A1c is 7.7 continue with diet change 3. Liver cirrhosis: LFTs only minimal elevation of AST to 35 4. H/O borderline personality disorder: Patient reports meth use up to the day of admission 12/05/2024 no meth. Alcohol abuse was stopped about 5 years ago she does not use weed because it makes her paranoid. She wants to live for her 2 children ages 15 and 17. 5. Methamphetamine abuse: Counseled the patient that she should stop methamphetamines and alcohol due to heart failure 6. PTSD (post-traumatic stress disorder): Managed by psychiatry. PDMP PDMP Reviewed: Not Reviewed Attestations Medical Necessity Statement*: Requires additional time in the hospital for her mental health. Anticipate this to be greater than 2 days. I will come back and talk to her about her cardiac test results from [place] Coding Level of Care Code Acute Code for [facility] Fwd Diagnoses Chronic CHF I50.9 Type 2 diabetes mellitus E11.9 Liver cirrhosis K74.60 H/O borderline personality disorder Z86.59 Methamphetamine abuse F15.10 PTSD (post-traumatic stress disorder) F43.10
[2024-12-08 19:47] VITALS: BP 138/91; PULSE 82; RESP 16; TEMP 36.9; O2SAT 96
[2024-12-09 06:00] VITALS: BP 109/74; PULSE 74; RESP 16; O2SAT 96
[2024-12-09 14:00] VITALS: BP 129/92; PULSE 85; RESP 16; TEMP 36.6; O2SAT 97
--- NOTE | 2024-12-09 16:05 | P.NPUPN_ITS ---
Subjective NPU 2 Subjective: Patient presented today reporting that things are feeling like they are moving in the right direction. She discussed a plan to go with her significant other and that there is a camper that they are going to be in for the short-term. She reports that she is feeling the medications are helpful and that she feels safe and was able to contract for safety. She denied any current suicidal thoughts or issues with lethality towards others. She endorsed feeling good about the prospect of the likely discharge tomorrow and she denied any side effects to her medications. Mental Status Exam 2 MSE Comments: She is a casually dressed overweight white female with poor hygiene who appeared older than her stated age. She was lying in bed with head underneath covers. She appeared fatigued, with prominent psychomotor retardation appreciated. There was no evidence of any abnormal involuntary motor movements, tics, or tremors appreciated. Her speech was decreased in productivity, decreased in volume. Her mood was described depressed. Her affect was mood congruent and flat. Her thought process was linear, logical, and goal-directed. Her thought content showed no evidence of suicidal ideation with no active plan at this time reported. She denied any homicidal ideation. She did not appear to be responding to internal stimuli. She denied any auditory or visual hallucinations. There was no evidence of delusional thinking. There were no ideas of reference. She was alert and oriented to person, place, time, and situation. Her attention span was fair. Her insight appeared poor. Her judgment was poor. Her impulse control appeared limited. She had reported a sense of hopelessness and reported being tired of living. Vitals/I&O/Wt Last Vital Signs Temp 97.8 F 12/09/24 14:00 Pulse 85 12/09/24 14:00 Resp 16 12/09/24 14:00 BP 129/92 12/09/24 14:00 Pulse Ox 97 12/09/24 14:00 O2 Del Method Room Air 12/09/24 14:00 Data NPU 12/07/24 14:08 12/08/24 10:41 A&P Assessment and plan 1. Depression, unspecified: 2. PTSD (post-traumatic stress disorder): 3. Suicidal ideation: 4. Methamphetamine abuse: 5. H/O borderline personality disorder: Plan: 34-year-old female with chronic methamphetamine abuse admitted with depression and suicidal ideation with continued symptoms suggestive of PTSD and borderline personality disorder along with depression. #1.? Engage patient in individual milieu and group therapy. #2?? Recommend sober living treatment at the highest level of care to which the patient is willing to commit. Patient may be candidate for inpatient substance abuse treatment #3???Restart outpatient medications. Medical consult appreciated. ? #4?? TO-15 minute checks? #5?? Will attempt to gather collateral information, continue zoloft at 50mg daily and continue seroquel 100mg at night. PDMP PDMP Reviewed: Not Reviewed Involuntary Hold Information 2 Hold Status: Legal Status: 96 Hour Hold Date/Time Hold Expires: 12/11/2024 00:01 Attestations NPU 2 Medical Necessity Statement*: Inpatient hospitalization is medically necessary and?the clinically appropriate intervention?at this time.? We will monitor/initiate medications and make changes as indicated.? The patient?s likely length of stay 1-2 days. Coding Level of Care Code Acute Code for [facility] Fwd Diagnoses Depression, unspecified F32.A PTSD (post-traumatic stress disorder) F43.10 Suicidal ideation R45.851 Methamphetamine abuse F15.10 H/O borderline personality disorder Z86.59
[2024-12-09 19:44] VITALS: BP 131/90; PULSE 88; RESP 16; TEMP 36.4; O2SAT 98
[2024-12-10 06:00] VITALS: BP 116/87; PULSE 93; RESP 16; TEMP 36.4; O2SAT 96
[2024-12-10 12:39] VITALS: BP 116/87; PULSE 92; RESP 16; TEMP 36.4; O2SAT 96
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
[2024-12-10 14:00] VITALS: BP 125/78; PULSE 74; RESP 16; TEMP 36.6; O2SAT 98
== END 2024-12-10 15:45 | disposition home or self-care (01) | DRG 881 ==
LOC: ER 16:55 → NP 18:18
PROVIDERS: Internal Medicine; Student in an Organized Health Care Education/Training Program; Admitting Provider Psychiatry & Neurology Psychiatry; Emergency Provider Registered Nurse; Visit Provider Psychiatry & Neurology Psychiatry
DX: F32.A Depression, unspecified (principal); R45.851 Suicidal ideations; Z59.00 Homelessness unspecified; F43.10 Post-traumatic stress disorder, unspecified; F15.10 Other stimulant abuse, uncomplicated; F60.3 Borderline personality disorder; F17.210 Nicotine dependence, cigarettes, uncomplicated; F17.290 Nicotine dependence, other tobacco product, uncomplicated; D75.1 Secondary polycythemia; E11.8 Type 2 diabetes mellitus with unspecified complications; I50.9 Heart failure, unspecified; E66.3 Overweight; Z68.35 Body mass index [BMI] 35.0-35.9, adult; R45.88 Nonsuicidal self-harm; F10.10 Alcohol abuse, uncomplicated; K70.30 Alcoholic cirrhosis of liver without ascites; B19.20 Unspecified viral hepatitis C without hepatic coma; Z82.49 Family history of ischemic heart disease and other diseases of the circulatory system
CPT/HCPCS: 36415; 36416; 71046; 80048; 80053; 80069; 80306; 80307; 81001; 81025; 82962; 83036; 83735; 83880; 84100; 84145; 85025; 87086; 87522; 87637; 93005; 93010; 96372; 96374; 97150; 97165; 99285; J1815; J9999